=== PATIENT | female | born 1990 | race Caucasian/White ===

== ENCOUNTER 2019-02-16 13:09 | Emergency (ER) | payer MEDICAID ==
[~2019-02-16] VITALS: Ht 152.4 cm; Wt 81.6 kg
[2019-02-16 13:15] VITALS: BP 124/85
--- NOTE | 2019-02-16 13:25 | NUR ---
PT TRIAGED, SENT BACK TO LOBBY AWAITING FOR BED
--- NOTE | 2019-02-16 15:15 | NUR ---
BIB FAMILY C/O L FLANK PAIN, RADIATING TO SUPRAPUBIC, X1 WEEK. DENIES DYSURIA. LBM TODAY, REPORTS NORMAL STOOL. HX CONGENITAL SCOLIOSIS WITH KYPHOSIS (BACK SURGERY IN 2001). DENIES RX. OTC ADVIL WITH SOME RELIEF. PATIENT STATES PAIN OF 9/10 AT THIS TIME. PATIENT POSITIONED FOR COMFORT; HOB ELEVATED; BEDRAILS UP X1; BED DOWN. ER MD MADE AWARE OF PT STATUS.
--- NOTE | 2019-02-16 15:42 | NUR ---
RETURNED FROM CT AT THIS TIME
[2019-02-16] MEDS ORDERED: KETOROLAC 60 MG/2 ML VIAL IM ONE (16:30)
--- NOTE | 2019-02-16 16:41 | NUR ---
Patient discharged with v/s stable. Written and verbal after care instructions given and explained. Patient alert, oriented and verbalized understanding of instructions. Ambulatory with steady gait. All questions addressed prior to discharge. ID band removed. Patient advised to follow up with PMD. Rx of ROBACIN, MOTRIN & TRAMADOL given. Patient educated on indication of medication including possible reaction and side effects. Opportunity to ask questions provided and answered.
[2019-02-16 16:42] VITALS: BP 117/69
== END 2019-02-16 16:41 | disposition home or self-care (01) ==
LOC: MED 13:09
DX: M54.42 Lumbago with sciatica, left side (principal); R11.0 Nausea; Z90.49 Acquired absence of other specified parts of digestive tract; Z98.890 Other specified postprocedural states; Z88.0 Allergy status to penicillin
CPT/HCPCS: 74176; 81002; 81025; 96372; 99284; J1885

== ENCOUNTER 2023-04-06 11:34 | Emergency (ER) | payer MEDICAID ==
[~2023-04-06] VITALS: Ht 152.4 cm; Wt 93.0 kg
[2023-04-06 11:43] VITALS: BP 128/63; PULSE 88; RESP 16; TEMP 98.3; O2SAT 100
[2023-04-06 14:35] VITALS: BP 120/60; PULSE 88; RESP 18; TEMP 98.3; O2SAT 99
== END 2023-04-06 14:35 | disposition home or self-care (01) ==
LOC: MED 11:34
DX: O20.0 Threatened abortion (principal); Z3A.10 10 weeks gestation of pregnancy
CPT/HCPCS: 76817; 99284; Q0092